=== PATIENT | female | born 1975 | race American Indian/Alaskan Native ===

== ENCOUNTER 2017-05-18 08:33 | Day surgery (SDC) | payer MEDICAID ==
--- NOTE | 2017-05-18 08:56 | Short Stay Summary ---
Short Stay Documentation Date of service: 05/18/17 Narrative H&P: Pt is a 41yo BF LMP 05/09/17 presents for Hysteroscopic removal of IUD. Pelvic u/s showed IUD embedded in the posterior cervical wall. - History Principal diagnosis: Retained IUD H&P: obtained from office Past Medical History: diabetes, hypertension Past Surgical History: appendectomy, , Other (BTL) Social history: no significant social history, single - Allergies and Medications Current Medications: Allergies No Known Allergies Allergy (Verified 05/13/17 15:28) Home Medications Medication Instructions Recorded Confirmed Last Taken Type Cholecalciferol (Vitamin D3) 5,000 unit PO QWEEK 05/13/17 05/13/17 Unknown History [Vitamin D3] amLODIPine [Norvasc] 10 mg PO DAILY 05/13/17 05/13/17 Unknown History - Physical exam General appearance: no acute distress Integumentary: no rash HEENT: Atraumatic Lungs: Clear to auscultation Breasts: deferred Heart: Regular rate Gastrointestinal: normal Female Genitourinary: deferred Rectal Exam: deferred Extremities: no ischemia Neurological: Normal gait, Normal speech - Brief post op/procedure progress note Date of procedure: 05/18/17 Pre-op diagnosis: Retained IUD Post-op diagnosis: same Procedure: Hysteroscopy Anesthesia: MAC Findings: Slightly enlarged uterus. No IUD visible in the endometrial cavity or cervical canal. Surgeon: EV BRADFORD Estimated blood loss: minimal Pathology: none Condition: stable - Hospital course Hospital course: Unremarkable. - Disposition Condition at discharge: Good Disposition: [id number] TO HOME OR SELFCARE - Discharge Diagnoses (1) Malpositioned intrauterine device (IUD) Status: Acute Qualifiers: Encounter type: initial encounter Qualified Code(s): T83.32XA - Displacement of intrauterine contraceptive device, initial encounter Short Stay Discharge Plan Activity: no restrictions Diet: regular Follow up with: AMANDA ELMORE MD [Primary Care Provider] - 7 Days EV BRADFORD MD [Staff Physician] - 14 Days Prescriptions: Ibuprofen [Motrin] 800 mg PO Q8HR PRN #30 tablet PRN Reason: Pain, Moderate (4-6)
[2017-05-18] MEDS ORDERED: LACTATED RINGERS 1,000 ML IV SCH (09:00)
[2017-05-18] MEDS ORDERED: ANCEF/STERILE WATER 2 GM/20 ML 2 GM/20 ML SYRINGE IV NR (09:00)
--- NOTE | 2017-05-18 09:10 | Anesthesia Consultation ---
Anesthesia Consult and Med Hx Date of service: 05/18/17 - Airway Anesthetic Teeth Evaluation: Good ROM Head & Neck: Adequate Mental/Hyoid Distance: Adequate Mallampati Class: Class II Intubation Access Assessment: Probably Good - Pulmonary Exam CTA: Yes - Cardiac Exam Cardiac Exam: RRR - Pre-Operative Health Status ASA Pre-Surgery Classification: ASA2 Proposed Anesthetic Plan: General - Pulmonary Hx Smoking: No Hx Sleep Apnea: No (SKYLER PRE SCREEN LOW RISK) - Cardiovascular System Hx Hypertension: Yes (X 1 YR) - Central Nervous System CVA: Yes (2003, NO DEFICITS , NEVER ON BLD THINNERS) - Endocrine Hx Non-Insulin Dependent Diabetes: Yes (diet controlled) - Hematic Hx Anemia: Yes (in the past) - Other Systems Hx Cancer: No - Additional Comments Anesthesia Medical History Comments: Informed consent obtained
--- NOTE | 2017-05-18 09:10 | Anesthesia Day of Surgery ---
Anesthesia Day of Surgery - Day of Surgery Patient Examined: Yes Patient H&P Reviewed: Yes Patient is NPO: Yes
[2017-05-18] MEDS ORDERED: DILAUDID IV PRN (09:11)
[2017-05-18] MEDS ORDERED: PEPCID IV NR (10:00)
[2017-05-18] MEDS ORDERED: VERSED IV NR (10:00)
[2017-05-18 10:11] LABS: Hematocrit 39.2 % (30.3-42.9); Hemoglobin 12.9 gm/dl (10.1-14.3)
[2017-05-18] MEDS ORDERED: DIPRIVAN 10 MG/ML IV ONE (12:02)
[2017-05-18] MEDS ORDERED: XYLOCAINE MPF 2% ONE (12:03)
[2017-05-18] MEDS ORDERED: NACL 0.9% IR ONE (12:36)
[2017-05-18] MEDS ORDERED: ZOFRAN ONE (12:42)
[2017-05-18] MEDS ORDERED: TORADOL ONE (12:47)
--- NOTE | 2017-05-18 13:05 | Operative Report ---
Operative Report Operative Report: Date of procedure: 05/18/2017 Pre-operative diagnosis: 1. Retained IUD 2. Malpositioned IUD Post-operative diagnosis: Same Procedure name(s): Hysteroscopy Surgeon: Boo Downing MD Storage Facility Housekeeper: None Anesthesia: Gen. mask EBL: 10 mL Findings: Slightly enlarged uterus with normal-appearing uterine cavity. No evidence of IUD within the uterine cavity or the cervical canal. Procedure: After the patient was correctly identified, she was prepped and draped in usual sterile fashion and placed in the dorsolithotomy position. First the bladder was emptied using a straight catheter. Next the speculum was placed in the vaginal vault, and the anterior lip of the cervix was grasped using a single-tooth tenaculum. The uterus was sounded to 9 cm, and the cervical os was sequentially dilated. The hysteroscope was introduced into the cervical canal. Visualization of the endometrial cavity found a normal tubal ostia bilaterally. No evidence of the intrauterine device was seen within the uterine cavity or the cervical canal. At this point the procedure was considered complete. All instruments removed from the vagina. The patient tolerated the procedure well and was transported to recovery in stable condition.
[2017-05-18 15:42] VITALS: BP 128/79
--- NOTE | 2017-05-18 17:07 | Post Anesthesia Evaluation ---
- Post Anesthesia Evaluation Airway Patent: Yes Stable Respiratory Function: Yes Nausea/Vomiting: No Temp > 96.8F: Yes Pain Manageable: Yes Adequeate Hydration: Yes Anesthesia Complications: No Block Receding Appropriately: Not Applicable Patient on Ventilator: No
== END 2017-05-18 14:30 | disposition home or self-care (01) ==
LOC: OR 08:33
PROVIDERS: ATTEND Obstetrics & Gynecology
DX: Z30.432 Encounter for removal of intrauterine contraceptive device (principal); E11.9 Type 2 diabetes mellitus without complications; I10 Essential (primary) hypertension; Z90.89 Acquired absence of other organs; Z98.51 Tubal ligation status; Z98.890 Other specified postprocedural states; Z79.899 Other long term (current) drug therapy; Z86.73 Personal history of transient ischemic attack (TIA), and cerebral infarction without residual deficits
CPT/HCPCS: 36415; 58555; 81025; 82962; 85014; 85018; A4217; J0690; J1885; J2250; J2405; J2704; J7120

== ENCOUNTER 2017-07-29 10:04 | Outpatient (CLI) | payer MEDICAID ==
--- NOTE | 2017-07-29 11:11 | Ultrasound Report ---
ULTRASOUND PELVIC COMPLETE ULTRASOUND TRANSVAGINAL HISTORY: Malposition of intrauterine device. COMPARISON: None. TECHNIQUE: Transabdominal and transvaginal ultrasound with color doppler interrogation. FINDINGS: Uterus: The uterus is anteverted. The uterus measures 8.6 x 3.7 x 4.1 cm. There is no evidence for uterine mass. The intrauterine device is identified and appears to be situated in an oblique position and in the cervix and lower uterine segment. Endometrium: 8.4 mm. Right ovary: 4.0 x 2.0 x 2.2 cm. A 1.1 cm cyst is identified. Left ovary: 3.3 x 3.4 x 2.4 cm. A 2.2 cm cyst is identified. No pelvic fluid or mass is identified. Normal color doppler interrogation. IMPRESSION: Intrauterine device as outlined above. Bilateral simple ovarian cysts.
== END 2017-07-29 10:05 | disposition home or self-care (01) ==
LOC: US 10:04
PROVIDERS: ATTEND Obstetrics & Gynecology
DX: T83.32XS Displacement of intrauterine contraceptive device, sequela (principal); N83.292 Other ovarian cyst, left side; N83.291 Other ovarian cyst, right side
CPT/HCPCS: 76830; 76856